=== PATIENT | female | born 1965 | race Caucasian/White ===

== ENCOUNTER → 2023-03-09 10:38 | Outpatient (REF) | payer BC, SELFPAY ==
[2023-03-09 11:35] LABS: % Basophils 0.7 % (0-2); % Eosinophils 0.9 % (0-6); % Immature Granulocytes 0.1 % (0-0.5); % Lymphocytes 22.6 % (20.5-51.1); % Monocytes 6.5 % (1.7-9.3); % Neutrophils 69.2 % (42.2-75.2); Absolute Basophils 0.1 10^3/uL (0-0.2); Absolute Eosinophils 0.1 10^3/uL (0-0.7); Absolute Lymphocytes 1.7 10^3/uL (1.2-3.4); Absolute Monocytes 0.5 10^3/uL (0.1-0.6); Absolute Neutrophils 5.2 10^3/uL (1.4-6.5); Hemoglobin 14.6 g/dL (12.0-16.0); Mean Corp Hgb Conc. 35.6 g/dL (33.0-37.0); Mean Corpuscular Hgb 30.2 pg (27.0-31.0); Mean Corpuscular Volume 84.7 fL (81.0-99.0); Mean Platelet Volume 9.3 fL (7.4-10.4); Nucleated Red Blood Cells % 0 %; Platelet Count 311 10^3/uL (130-400); Red Blood Cell Count 4.84 10^6/uL (4.20-5.40); Red Cell Dist. Width 12.9 % (11.5-14.5); White Blood Cell Count 7.6 10^3/uL (4.8-10.8)
[2023-03-09 13:39] LABS: ALT (SGPT) 19 U/L (0-35); AST (SGOT) 19 U/L (14-36); Albumin 3.7 g/dl (3.5-5.0); Alkaline Phosphatase 103 U/L (38-126); Blood Urea Nitrogen 19 mg/dl (7-17); Calcium 9.2 mg/dl (8.4-10.2); Carbon Dioxide 23 mmol/L (22-30); Chloride 103 mmol/L (98-107); Glucose 102 mg/dl (70-99); Magnesium 2.1 mg/dl (1.6-2.3); Potassium 4.1 mmol/L (3.5-5.1); Sodium 138 mmol/L (135-145); Total Bilirubin 0.7 mg/dl (0.2-1.3); Total Protein 6.7 g/dl (6.3-8.2); eGFR > 60.00
== END ==
LOC: REG 10:38
PROVIDERS: ATTENDING PHYSICIAN Internal Medicine Cardiovascular Disease; FAMILY PHYSICIAN Family Medicine
DX: I47.19 Other supraventricular tachycardia (principal)
CPT/HCPCS: 36415; 80053; 83735; 85025

== ENCOUNTER → 2023-03-12 07:26 | Day surgery (SDC) | payer BC, SELFPAY ==
[2023-03-12] VITALS (11 sets, daily range): BP systolic 120–145; BP diastolic 71–89; BMI 35.6
[2023-03-12] MEDS: NSS 500 IV (08:16)
--- NOTE | 2023-03-12 12:37 | ITS.EPS ---
Rapid Transit Operator - EPS Report
EPS
Procedure Report:
ELECTROPHYSIOLOGIC STUDY AND POSSIBLE ABLATION
Procedure Date: March 12, 2023
Primary Care Provider:
Sabi Butler M.D.
Primary boot trimmer:
Abebe Singh M.D.
Jn Caro D.O.
INDICATION: Supraventricular tachycardia, palpitations
HISTORY:
She is referred for electrophysiologic study regarding symptomatic supraventricular tachycardia felt to represent paroxysmal atrial tachycardia and there is even a question of atrial fibrillation.
Additionally there is evidence of progressive A-V conduction system disease. In April 2022 she had normal CO interval and normal QRS but since that time she has developed progressive CO interval prolongation and right bundle branch block. There is
concern for the possibility of an infiltrative disorder. She is planned to get cardiac MRI. In the meantime she presented to the office on March 09, 2023 noting that her symptoms have become nearly unbearable and she wished to proceed more
urgently to EP study which is being performed today.
'Time-out' was called and confirmed.
Presenting rhythm: Sinus rhythm
PROCEDURE:
Ultrasound Guidance performed by me was utilized for femoral venous Vascular Access b/l. Vascular US demonstrated the typical vascular anatomy.
Multipolar recording catheters were positioned at the HRA, RVA, His bundle and CS (for left atrial recording/mapping).
Mapping, recording and pacing were performed from these sites.
Baseline measurements were recorded and analyzed. Antegrade and retrograde AV sim Wenckebach CLs were obtained.
Programmed electrical stimulation was performed. Premature extrastimuli with burst atrial pacing as well as the delivery of atrial decremental extrastimuli both in the baseline state and with isoproterenol infusion/escalating dose isoproterenol.
CO: 246 ms
QRS 132 ms (RBBB)
QT: 395 ms, QTc 457 ms
Antegrade AVW: 550 ms
No VA Conduction
Atrial ERP 650 ms / 200 ms with no evidence of dual AV sim physiology
There is no inducible supraventricular tachycardia in both the baseline state or with escalating dose isoproterenol infusion.
COMPLICATIONS: None
SUMMARY:
EP study with coronary sinus/left atrial mapping
There is no VA conduction.
There is no dual AV sim physiology.
There is no inducible supraventricular tachycardia in both the baseline state and with escalating dose isoproterenol
RECOMMENDATIONS:
No inducible supraventricular tachycardia. Upon further review of her prior EKGs some of what has been termed atrial tachycardia likely represents sinus tachycardia with a prolonged first-degree AV delay.
Will need to further review her outpatient monitor for this potential diagnosis of atrial fibrillation.
She is already planned for outpatient cardiac MRI given her progressive AV conduction system disorder occurring at age less than 59 which could represent an infiltrative process such as sarcoidosis.
She will maintain oral anticoagulation given her prior TIA and this question of atrial fibrillation.
Copy to:
Sabi Hood
Dr. Abebe Singh
Dr. Franklin Caro.
--- NOTE | 2023-03-12 15:01 | PTCARENOTE ---
Pt reported palpitations and 'feeling crappy'. Ekg done per Rosy EMERY. Pt appears to have intermittent A.tach and intermittent second degree EKG. EKG done and shown to Rosy EMERY. MEETING FACILITATOR investigating current treatment and necessary follow up.
[2023-03-12] MEDS: LOPRESSOR 25 MG PO (15:23)
[2023-03-12] MEDS: TOPROL XL 25 MG PO (15:57)
== END | disposition home or self-care (01) ==
LOC: CATH 07:26
PROVIDERS: ATTENDING PHYSICIAN Internal Medicine Cardiovascular Disease; FAMILY PHYSICIAN Family Medicine
DX: I47.19 Other supraventricular tachycardia (principal); R00.2 Palpitations; R53.83 Other fatigue; I45.10 Unspecified right bundle-branch block; I10 Essential (primary) hypertension; E78.00 Pure hypercholesterolemia, unspecified; Z86.73 Personal history of transient ischemic attack (TIA), and cerebral infarction without residual deficits; G47.30 Sleep apnea, unspecified; Z79.82 Long term (current) use of aspirin
CPT/HCPCS: 93620; C1894; C1769; C1730; 76937; 93005; 93613; 93621; 93623

== ENCOUNTER → 2023-04-13 08:50 | Outpatient (REF) | payer BC, SELFPAY | LOC: DHCBC/DCA 08:50 | PROVIDERS: ATTENDING PHYSICIAN Internal Medicine Interventional Cardiology; FAMILY PHYSICIAN Family Medicine | DX: R07.89 Other chest pain (principal); R06.09 Other forms of dyspnea; R06.02 Shortness of breath | CPT/HCPCS: 78452; 93017; A9500 ==

== ENCOUNTER → 2023-08-31 09:28 | Outpatient (REF) | payer BC, SELFPAY ==
[2023-08-31 11:08] LABS: % Basophils 0.5 % (0-2); % Eosinophils 1.6 % (0-6); % Immature Granulocytes 0.4 % (0-0.5); % Lymphocytes 23.4 % (20.5-51.1); % Neutrophils 66.1 % (42.2-75.2); Absolute Eosinophils 0.1 10^3/uL (0-0.7); Absolute Lymphocytes 1.9 10^3/uL (1.2-3.4); Absolute Monocytes 0.6 10^3/uL (0.1-0.6); Absolute Neutrophils 5.3 10^3/uL (1.4-6.5); Hemoglobin 14.6 g/dL (12.0-16.0); Mean Corp Hgb Conc. 34.8 g/dL (33.0-37.0); Mean Corpuscular Hgb 30.2 pg (27.0-31.0); Mean Corpuscular Volume 86.8 fL (81.0-99.0); Mean Platelet Volume 10.3 fL (7.4-10.4); Nucleated Red Blood Cells % 0 %; Platelet Count 279 10^3/uL (130-400); Red Blood Cell Count 4.84 10^6/uL (4.20-5.40); Red Cell Dist. Width 12.6 % (11.5-14.5)
[2023-08-31 13:22] LABS: ALT (SGPT) 23 U/L (0-35); AST (SGOT) 24 U/L (14-36); Albumin 4.4 g/dl (3.5-5.0); Alkaline Phosphatase 93 U/L (38-126); Blood Urea Nitrogen 19 mg/dl (7-17); Calcium 9.7 mg/dl (8.4-10.2); Carbon Dioxide 27 mmol/L (22-30); Chloride 104 mmol/L (98-107); Glucose 84 mg/dl (70-99); HDL Cholesterol 49 mg/dl; LDL Cholesterol, Calculated 74 mg/dl; Potassium 4.5 mmol/L (3.5-5.1); Sodium 139 mmol/L (135-145); Total Bilirubin 0.6 mg/dl (0.2-1.3); Total Cholesterol 146 mg/dl (50-199); Total Protein 7.2 g/dl (6.3-8.2); Triglyceride 117 mg/dl (10-149); Very Low Density Lipoprotein 23 mg/dl (0-30); eGFR > 60.00
== END ==
LOC: REG 09:28
PROVIDERS: ATTENDING PHYSICIAN Physician Assistant
DX: E78.00 Pure hypercholesterolemia, unspecified (principal); I63.9 Cerebral infarction, unspecified; E66.01 Morbid (severe) obesity due to excess calories; I10 Essential (primary) hypertension; Z86.73 Personal history of transient ischemic attack (TIA), and cerebral infarction without residual deficits; I45.10 Unspecified right bundle-branch block; I47.19 Other supraventricular tachycardia
CPT/HCPCS: 36415; 80053; 80061; 85025

== ENCOUNTER → 2023-10-18 13:42 | Outpatient (REF) | payer BC, SELFPAY | LOC: WDC 13:42 | PROVIDERS: ATTENDING PHYSICIAN Physician Assistant | DX: Z12.31 Encounter for screening mammogram for malignant neoplasm of breast (principal) | CPT/HCPCS: 77063; 77067 ==

== ENCOUNTER 2024-04-18 06:27 | Day surgery (SDC) | payer BC, SELFPAY | END 2024-04-18 11:26 | disposition home or self-care (01) | LOC: GI 06:27 | PROVIDERS: ATTENDING PHYSICIAN Internal Medicine Gastroenterology | DX: Z12.11 Encounter for screening for malignant neoplasm of colon (principal); D12.4 Benign neoplasm of descending colon; K57.30 Diverticulosis of large intestine without perforation or abscess without bleeding; D12.8 Benign neoplasm of rectum; Z79.01 Long term (current) use of anticoagulants | CPT/HCPCS: G0121 ==

== ENCOUNTER → 2024-05-29 09:39 | Outpatient (REF) | payer BC, SELFPAY ==
[2024-05-29 12:03] LABS: ALT (SGPT) 23 U/L (0-35); AST (SGOT) 17 U/L (14-36); Albumin 3.9 g/dl (3.5-5.0); Alkaline Phosphatase 90 U/L (38-126); Blood Urea Nitrogen 15 mg/dl (7-17); Calcium 9.4 mg/dl (8.4-10.2); Carbon Dioxide 26 mmol/L (22-30); Chloride 106 mmol/L (98-107); Glucose 104 mg/dl (70-99); Sodium 143 mmol/L (135-145); Total Bilirubin 0.5 mg/dl (0.2-1.3); Total Protein 6.8 g/dl (6.3-8.2); Triglyceride 132 mg/dl (10-149); Very Low Density Lipoprotein 26 mg/dl (0-30); eGFR > 60.00
[2024-05-29 12:19] LABS: HDL Cholesterol 48 mg/dl; LDL Cholesterol, Calculated 72 mg/dl; Total Cholesterol 146 mg/dl (50-199)
== END ==
LOC: REG 09:39
PROVIDERS: ATTENDING PHYSICIAN Internal Medicine Interventional Cardiology
DX: E78.2 Mixed hyperlipidemia (principal)
CPT/HCPCS: 36415; 80053; 80061

== ENCOUNTER → 2024-09-11 09:26 | Outpatient (REF) | payer BC, SELFPAY ==
[2024-09-11 10:19] LABS: Hematocrit 43.6 % (37.0-47.0); Hemoglobin 14.8 g/dL (12.0-16.0); Mean Corp Hgb Conc. 33.9 g/dL (33.0-37.0); Mean Corpuscular Volume 87.7 fL (81.0-99.0); Nucleated Red Blood Cells % 0 %; Platelet Count 332 10^3/uL (130-400); Red Cell Dist. Width 13.2 % (11.5-14.5)
[2024-09-11 10:46] LABS: ALT (SGPT) 36 U/L (0-35); AST (SGOT) 24 U/L (14-36); Albumin 4.3 g/dl (3.5-5.0); Alkaline Phosphatase 97 U/L (38-126); Blood Urea Nitrogen 16 mg/dl (7-17); Calcium 9.8 mg/dl (8.4-10.2); Carbon Dioxide 26 mmol/L (22-30); Chloride 107 mmol/L (98-107); Glucose 102 mg/dl (70-99); HDL Cholesterol 54 mg/dl; LDL Cholesterol, Calculated 104 mg/dl; Potassium 4.2 mmol/L (3.5-5.1); Sodium 141 mmol/L (135-145); Total Protein 7.4 g/dl (6.3-8.2); Very Low Density Lipoprotein 30 mg/dl (0-30); eGFR > 60.00
== END ==
LOC: REG 09:26
PROVIDERS: ATTENDING PHYSICIAN Physician Assistant
DX: E78.00 Pure hypercholesterolemia, unspecified (principal); I63.9 Cerebral infarction, unspecified; E66.01 Morbid (severe) obesity due to excess calories; I10 Essential (primary) hypertension; Z86.73 Personal history of transient ischemic attack (TIA), and cerebral infarction without residual deficits; I45.10 Unspecified right bundle-branch block; I47.19 Other supraventricular tachycardia
CPT/HCPCS: 36415; 80053; 80061; 85025

== ENCOUNTER → 2024-10-23 08:33 | Outpatient (REF) | payer BC, SELFPAY | LOC: WDC 08:33 | PROVIDERS: ATTENDING PHYSICIAN Family Medicine | DX: Z12.31 Encounter for screening mammogram for malignant neoplasm of breast (principal) | CPT/HCPCS: 77063; 77067 ==

== ENCOUNTER → 2024-12-16 15:45 | Outpatient (REF) | payer BC, SELFPAY | LOC: RCS 15:45 | PROVIDERS: ATTENDING PHYSICIAN Internal Medicine Interventional Cardiology; FAMILY PHYSICIAN Family Medicine | DX: I35.0 Nonrheumatic aortic (valve) stenosis (principal) | CPT/HCPCS: 93306 ==